=== PATIENT | female | born 1945 | race Caucasian/White ===

== ENCOUNTER → 2017-10-23 | Outpatient (CLI) | payer MEDICARE, OTHER ==
--- NOTE | 2017-10-24 08:58 | MM ---
Reason for exam: screening (asymptomatic). Last mammogram was performed 1 year ago. History: Patient is postmenopausal. Family history of breast cancer in maternal grandmother at age 65, breast cancer in sister at age 50, and breast cancer in mother at age 86. Benign stereotactic core biopsy of the left breast, January 05, 2000. Core biopsy of the left breast. Excisional biopsy of the left breast. Took hormonal contraceptives for 7 years beginning at age 26. Took estrogen for 2 years beginning at age 52. Physical Findings: A clinical breast exam by your physician is recommended on an annual basis and results should be correlated with mammographic findings. MG 3D Screening Mammo W/Cad Bilateral CC and MLO view(s) were taken. Prior study comparison: October 12, 2016, bilateral MG 3d screening mammo w/cad. July 28, 2015, bilateral MG diagnostic mammo w CAD DIANA. There are scattered fibroglandular densities. Benign calcifications bilaterally. There is chronic nodularity bilaterally. No significant changes when compared with prior studies. ASSESSMENT: Benign, BI-RAD 2 RECOMMENDATION: Routine screening mammogram of both breasts in 1 year.
== END | disposition home or self-care (01) ==
LOC: RADMAMWWP 08:58
PROVIDERS: ATTEND Internal Medicine
DX: Z12.31 Encounter for screening mammogram for malignant neoplasm of breast (principal); Z80.3 Family history of malignant neoplasm of breast
CPT/HCPCS: 77063; 77067

== ENCOUNTER → 2018-11-01 | Outpatient (CLI) | payer MEDICARE ==
--- NOTE | 2018-11-03 14:22 | MM ---
Reason for exam: screening (asymptomatic). Last mammogram was performed 1 year ago. History: Patient is postmenopausal. Family history of breast cancer in maternal grandmother at age 65, breast cancer in sister at age 50, and breast cancer in mother at age 86. Benign stereotactic core biopsy of the left breast, January 05, 2000. Core biopsy of the left breast. Excisional biopsy of the left breast. Took hormonal contraceptives for 7 years beginning at age 26. Took estrogen for 2 years beginning at age 52. MG 3D Screening Mammo W/Cad Bilateral CC and MLO view(s) were taken. Prior study comparison: October 23, 2017, bilateral MG 3d screening mammo w/cad. October 12, 2016, bilateral MG 3d screening mammo w/cad. The breast tissue is heterogeneously dense. This may lower the sensitivity of mammography. There are stable benign calcifications. No significant changes when compared with prior studies. ASSESSMENT: Benign, BI-RAD 2 RECOMMENDATION: Routine screening mammogram of both breasts in 1 year.
== END | disposition home or self-care (01) ==
LOC: RADMAMWWP 06:55
PROVIDERS: ATTEND Internal Medicine
DX: Z12.31 Encounter for screening mammogram for malignant neoplasm of breast (principal)
CPT/HCPCS: 77063; 77067

== ENCOUNTER → 2019-10-02 | Outpatient (CLI) | payer MEDICARE ==
--- NOTE | 2019-10-02 11:01 | US ---
EXAMINATION TYPE: US abdomen complete DATE OF EXAM: 10/02/2019 COMPARISON: NONE CLINICAL HISTORY: R10.13 EPIGASTRIC PAIN. Pain EXAM MEASUREMENTS: Liver Length: 18.4 cm Gallbladder Wall: .2 cm CBD: .4 cm Spleen: 9.4 cm Right Kidney: 12.7 x 4.5 x 4.4 cm Left Kidney: 10.2 x 4.5 x 3.6 cm Pancreas: Obscured by bowel gas Liver: Increased attenuation upper limits Gallbladder: No stones seen Evidence for sonographic Denton's sign: No CBD: wnl Spleen: wnl Right Kidney: wnl Left Kidney: small amount of hydronephrosis Upper IVC: wnl Abd Aorta: wnl The visualized liver is heterogeneously hyperechoic. Evaluation for focal masses suboptimal due to t he heterogeneity. The intrahepatic portion of the IVC and visualized abdominal aorta are within noy l limits. There is no evidence of cholelithiasis. Common bile duct is unremarkable. The visualized portions of the pancreas are heterogeneous. Portions are obscured by overlying bowel gas. The spleen is unremarkable. No renal lesions are seen. IMPRESSION: Probable diffuse fatty infiltration of liver. Poor visualization of both kidneys with sug gestion of mild to moderate left-sided pyelocaliectasis. Follow-up CT advised.
== END | disposition home or self-care (01) ==
LOC: RADUSWWP 09:37
PROVIDERS: ATTEND Family Medicine
DX: R10.13 Epigastric pain (principal)
CPT/HCPCS: 76700

== ENCOUNTER → 2019-10-23 | Outpatient (CLI) | payer MEDICARE ==
--- NOTE | 2019-10-23 15:39 | CT ---
EXAMINATION TYPE: CT abdomen pelvis wo con DATE OF EXAM: 10/23/2019 COMPARISON: Ultrasound 10/02/2019 HISTORY: 74-year-old female R93.89, Abn US CT DLP: 1228.6 mGycm. Automated exposure control for dose reduction was used. TECHNIQUE: Contiguous axial scanning of the abdomen and pelvis without IV contrast. Coronal and sagit audrey reconstructions performed. FINDINGS: Heart normal size without pericardial effusion. Lung bases clear without pleural effusion. Small hiatal hernia with some oral contrast seen within the distal esophagus raising possibility of g astroesophageal reflux. Noncontrast appearance of the liver, gallbladder, adrenal glands, right kidney, spleen, and pancreas show no gross adenopathy. Cystlike structures in the region of the left renal sinus measuring up to 4.2 cm. The ureter itself h owever, appears normal caliber. No dilated small bowel, free fluid, or free air. No mesenteric or retroperitoneal lymphadenopathy. Normal appendix. Oral contrast progressed to the distal transverse colon. No significant stool burden . No pericolonic inflammatory change. Bladder not distended. Uterus retroverted. Uterus is very bulky probably with underlying fibroid ford ge, suspect a partially calcified anterior uterine body fibroid measuring up to 4.5 cm. Fundal fibroi d measures 2.7 cm. No abnormal fluid collection in the pelvis or pelvic lymphadenopathy. Bones: Mild degenerative changes of the hips. Multilevel degenerative changes throughout the lumbar s pine. IMPRESSION: 1. Cystlike structure measuring up to 4.2 cm in the left renal sinus region. The ureter itself appea rs normal caliber. Findings suspected to represent prominent parapelvic cysts accounting for the ultr asound appearance. Recommend follow-up CT with contrast (which includes delayed kidney images) to con firm. 2. Small hiatal hernia with some oral contrast located within the distal esophagus raising the possi bility of gastroesophageal reflux. 3. Bulky retroverted uterus. Suspect underlying fibroid change measuring up to 4.5 cm. Pelvic ultras ound can exclude any abnormal endometrial thickening.
== END | disposition home or self-care (01) ==
LOC: RADCTMAIN 13:32
PROVIDERS: ATTEND Family Medicine
DX: K44.9 Diaphragmatic hernia without obstruction or gangrene (principal); N85.4 Malposition of uterus; R93.41 Abnormal radiologic findings on diagnostic imaging of renal pelvis, ureter, or bladder
CPT/HCPCS: 74176

== ENCOUNTER → 2019-11-05 | Outpatient (CLI) | payer MEDICARE ==
[2019-11-05 12:32] LABS: African American GFR (CKD) >90 (>60 ml/min/1.73 sqM); Blood Urea Nitrogen 16 mg/dL (7-17); Non-African American GFR(CKD) 90 (>60 ml/min/1.73 sqM)
--- NOTE | 2019-11-05 13:18 | CT ---
EXAMINATION TYPE: CT abdomen w con DATE OF EXAM: 11/05/2019 COMPARISON: 10/23/2019 HISTORY: Mid back pain and Abnormal prior CT CT DLP: 1709 mGycm Automated exposure control for dose reduction was used. TECHNIQUE: Helical acquisition of images was performed from the lung bases through the top of iliac crest to include entire abdomen. CONTRAST: Performed with Oral Contrast and with IV Contrast, patient injected with 100 mL of Isovue 300. FINDINGS: LUNG BASES: No significant abnormality is appreciated. LIVER/GB: No significant abnormality is appreciated. PANCREAS: No significant abnormality is seen. SPLEEN: No significant abnormality is seen. ADRENALS: Stable 1.4 cm right adrenal nodule is indeterminate. KIDNEYS: Prominent extrarenal pelvis noted on the left. No evident gaseous renal mass or hydronephros is.. BOWEL: No significant abnormality is seen. LYMPH NODES: No significant abnormality is seen. OSSEOUS STRUCTURES: Mild degenerative changes of the hips. Multilevel degenerative changes throughou t the lumbar spine. OTHER: Visualized aorta of normal caliber.. Moderate-sized hiatal hernia noted. IMPRESSION: 1. Findings involving the left kidney are compatible with extrarenal pelvis with no evidence of renal cyst or hydronephrosis. 2. Hiatal hernia. 3. Indeterminate 1.4 cm right adrenal nodule. Most likely etiology is an incidental adrenal adenoma. Other etiologies not excluded
== END | disposition home or self-care (01) ==
LOC: RADCTMAIN 11:44
PROVIDERS: ATTEND Family Medicine
DX: K44.9 Diaphragmatic hernia without obstruction or gangrene (principal); Z13.9 Encounter for screening, unspecified
CPT/HCPCS: 82565; 84520; 74160; 36415; Q9967

== ENCOUNTER 2019-12-25 06:57 | Day surgery (SDC) | payer MEDICARE ==
[2019-12-20 13:54] VITALS: BMI 41.6
[~2019-12-25 06:57] MED LIST: LACTATED RINGERS 1,000 ML IV SCH; LIDOCAINE 1% (10MG/ML) FOR IV START INTRADERMA PRN
[2019-12-25 07:34] LABS: Glucose,Whole Blood 121 mg/dL (75-99)
[2019-12-25] MEDS ORDERED: PROPOFOL 10 MG/ML 20 ML VIAL IV ONE (07:38)
[2019-12-25] MEDS ORDERED: LIDOCAINE 1% INJ 10MG/ML (20 ML MDV) ONE (07:38)
--- NOTE | 2019-12-25 08:02 | P.PCN ---
Date of Procedure: 12/25/19 Procedure(s) Performed: BRIEF HISTORY: Patient is a 74-year-old pleasant white female scheduled for a elective colonoscopy as a part of the lesion of prior history of colon polyps and family history of colon cancer. Her mother and sister was diagnosed with colon cancer in his 60s. PROCEDURE PERFORMED: Colonoscopy. PREOPERATIVE DIAGNOSIS: History of colon polyps and family history of colon cancer. IV sedation per Anesthesia. PROCEDURE: After informed consent was obtained, the patient, was brought into the endoscopy unit. IV sedation was administered by Anesthesia under continuous monitoring. Digital rectal examination was normal. Initially the Olympus CF-160 flexible video colonoscope was then inserted in the rectum, gradually advanced into the cecum without any difficulty. Careful examination was performed as the scope was gradually being withdrawn. Ileocecal valve and the appendiceal orifice were visualized and appeared normal. Prep was excellent. Mucosa of the cecum, ascending colon, transverse colon, descending colon, sigmoid colon, and rectum appeared normal. Retroflexion was performed in the rectum and no lesions were seen. The patient tolerated the procedure well. IMPRESSION: Normal-appearing colon from rectum to cecum with no evidence of colorectal neoplasia . RECOMMENDATIONS: Findings of this examination were discussed with the patient is well as her family. She was advised to have a repeat screening colonoscopy every 5 years because of strong family history of colon cancer..
[2019-12-25 08:07] VITALS: RESP 16
[2019-12-25 08:18] VITALS: BP 144/70; PULSE 66
== END 2019-12-25 08:54 | disposition home or self-care (01) ==
LOC: ORWHC2ENDO 06:57
PROVIDERS: ATTEND Internal Medicine Gastroenterology
DX: Z12.11 Encounter for screening for malignant neoplasm of colon (principal); Z86.010 Personal history of colon polyps; Z80.0 Family history of malignant neoplasm of digestive organs; I10 Essential (primary) hypertension; E78.5 Hyperlipidemia, unspecified; E11.9 Type 2 diabetes mellitus without complications; K21.9 Gastro-esophageal reflux disease without esophagitis; M10.9 Gout, unspecified; Z91.048 Other nonmedicinal substance allergy status; Z79.899 Other long term (current) drug therapy
CPT/HCPCS: J2001; J2704; G0121

== ENCOUNTER → 2019-12-30 | Outpatient (CLI) | payer MEDICARE | END | disposition home or self-care (01) | LOC: RADMAMWWP 08:10 | PROVIDERS: ATTEND Family Medicine | DX: Z12.31 Encounter for screening mammogram for malignant neoplasm of breast (principal) | CPT/HCPCS: 77063; 77067 ==

== ENCOUNTER → 2020-07-17 | Outpatient (CLI) | payer MEDICARE ==
--- NOTE | 2020-07-17 14:11 | BD ---
EXAMINATION TYPE: Axial Bone Density DATE OF EXAM: 07/17/2020 COMPARISON: NONE CLINICAL HISTORY: Height: 67 Weight: 273.8 FRAX RISK QUESTIONS: Alcohol (3 or more units per day): no Family History (Parent hip fracture): no Glucocorticoids (More than 3mos): no (Ex: prednisone, prednisolone, methylprednisolone, dexamethasone, and hydrocortisone). History of Fracture in Adulthood: no Secondary Osteoporosis: 1. Type 1 Diabetes: no 2. Hyperthyroidism: no 3. Menopause before 45: no 4. Malnutrition: no 5. Chronic liver disease: no Rheumatoid Arthritis: no Current Tobacco Use: no RISK FACTORS HISTORY OF: Family History of Osteoporosis: yes Active: no Diet low in dairy products/other sources of calcium: yes Postmenopausal woman: age 52 Lost more than 2 inches in height since high school: no MEDICATIONS: scanned list into pacs Additional History: EXAM MEASUREMENTS: Bone mineral densitometry was performed using the [employer] System. Bone mineral density as measured about the Lumbar spine is: ----- L1-L4(G/cm2): 1.337 T Score Values are as follows: ----- L2: 1.2 ----- L3: 3.1 ----- L4: 1.0 ----- L1-L4: 1.3 Bone mineral density has: increased 11.9 % since study of: 12.15.2010 Bone mineral density about the R hip (g/cm2): 0.868 Bone mineral density about the L hip (g/cm2): 0.865 T Score values are as follows: -----R Neck: -1.2 -----L Neck: -1.2 -----R Total: -0.9 -----L Total: -0.6 Bone mineral density has: decreased -3.8 % since study of: 12.15.2010 IMPRESSION: No evidence for osteoporosis or osteopenia. NOTE: T-SCORE=SD OF THE YOUNG ADULT MEAN.
== END | disposition home or self-care (01) ==
LOC: RADBDWWP 09:51
PROVIDERS: ATTEND Family Medicine
DX: M81.0 Age-related osteoporosis without current pathological fracture (principal)
CPT/HCPCS: 77080

== ENCOUNTER → 2020-07-17 | Outpatient (CLI) | payer MEDICARE ==
--- NOTE | 2020-07-17 10:48 | XR ---
EXAMINATION TYPE: XR chest 2V DATE OF EXAM: 07/17/2020 COMPARISON: Chest x-ray March 15, 2013. HISTORY: Dyspnea. TECHNIQUE: Frontal and lateral views of the chest are obtained. FINDINGS: There is no focal air space opacity, pleural effusion, or pneumothorax seen. The cardiac silhouette size is within normal limits with atherosclerotic change aortic knob. Moderate multilevel spurring in the lower thoracic spine. IMPRESSION: No acute cardiopulmonary process. No significant change from prior.
== END | disposition home or self-care (01) ==
LOC: RADXRMAIN 10:15
PROVIDERS: ATTEND Family Medicine
DX: R06.09 Other forms of dyspnea (principal)
CPT/HCPCS: 71046

== ENCOUNTER → 2021-04-08 | Outpatient (CLI) | payer MEDICARE ==
--- NOTE | 2021-04-09 11:17 | MM ---
Reason for exam: screening (asymptomatic). Last mammogram was performed 1 year and 3 months ago. History: Patient is postmenopausal. Family history of breast cancer in maternal grandmother at age 65, breast cancer in sister at age 50, and breast cancer in mother at age 86. Benign stereotactic core biopsy of the left breast, January 05, 2000. Core biopsy of the left breast. Excisional biopsy of the left breast. Took hormonal contraceptives for 7 years beginning at age 26. Took estrogen for 2 years beginning at age 52. Physical Findings: A clinical breast exam by your physician is recommended on an annual basis and results should be correlated with mammographic findings. MG 3D Screening Mammo W/Cad Bilateral CC and MLO view(s) were taken. Prior study comparison: December 30, 2019, bilateral MG 3d screening mammo w/cad. November 01, 2018, bilateral MG 3d screening mammo w/cad. There are scattered fibroglandular densities. Left post operative change and biopsy clip. ASSESSMENT: Benign, BI-RAD 2 RECOMMENDATION: Routine screening mammogram of both breasts in 1 year.
== END | disposition home or self-care (01) ==
LOC: RADMAMWWP 09:28
PROVIDERS: ATTEND Family Medicine
DX: Z12.31 Encounter for screening mammogram for malignant neoplasm of breast (principal); Z78.0 Asymptomatic menopausal state; Z80.3 Family history of malignant neoplasm of breast
CPT/HCPCS: 77063; 77067

== ENCOUNTER → 2021-09-01 | Outpatient (CLI) | payer MEDICARE ==
--- NOTE | 2021-09-01 13:53 | XR ---
EXAMINATION TYPE: XR chest 2V DATE OF EXAM: 09/01/2021 COMPARISON: Chest x-ray July 17, 2020 HISTORY: Cough for 2 weeks. TECHNIQUE: Frontal and lateral views of the chest are obtained. FINDINGS: There is no suspicious peripheral focal air space opacity, pleural effusion, or pneumothor ax seen. The cardiac silhouette size is stable and within normal limits. The osseous structures ar e demineralized. IMPRESSION: No acute pulmonary process. No significant change from prior.
== END | disposition home or self-care (01) ==
LOC: RADXRMAIN 13:33
PROVIDERS: ATTEND Family Medicine
DX: R05.9 Cough, unspecified (principal)
CPT/HCPCS: 71046

== ENCOUNTER → 2022-05-17 | Outpatient (CLI) | payer MEDICARE ==
[~2022-05-17] MED LIST changes: +BEBTELOVIMAB (EUA) 175 MG/2 ML VIAL IV NR; -LACTATED RINGERS 1,000 ML IV SCH; -LIDOCAINE 1% (10MG/ML) FOR IV START INTRADERMA PRN; +SODIUM CHLORIDE 0.9% 500 ML 500 ML in EMPTY BAG 1 BAG IV PRN
[2022-05-17 12:53] VITALS: TEMP 97.5
[2022-05-17 13:48] VITALS: BP 111/71; PULSE 55; RESP 16
== END ==
LOC: PROCWHC3 12:17
PROVIDERS: ATTEND Physician Assistant Medical
DX: U07.1 COVID-19 (principal); E66.9 Obesity, unspecified; Z91.048 Other nonmedicinal substance allergy status; Z91.09 Other allergy status, other than to drugs and biological substances; Z68.34 Body mass index [BMI] 34.0-34.9, adult
CPT/HCPCS: Q0222; M0222

== ENCOUNTER → 2023-01-16 | Outpatient (CLI) | payer MEDICARE | END | disposition home or self-care (01) | LOC: LABWHC1 08:01 | PROVIDERS: ATTEND Family Medicine | DX: D35.00 Benign neoplasm of unspecified adrenal gland (principal) | CPT/HCPCS: 36415; 82024 ==

== ENCOUNTER → 2023-01-30 | Outpatient (CLI) | payer MEDICARE | END | disposition home or self-care (01) | LOC: LABWHC1 07:38 | PROVIDERS: ATTEND Family Medicine | DX: D35.00 Benign neoplasm of unspecified adrenal gland (principal) | CPT/HCPCS: 36415 ==

== ENCOUNTER → 2023-06-08 | Outpatient (CLI) | payer MEDICARE ==
--- NOTE | 2023-06-09 10:56 | MM ---
Reason for Exam: Screening (asymptomatic). Last screening mammogram was performed 12 month(s) ago. Patient History: Menarche at age 15. First Full-Term at age 29. Postmenopausal. Estrogen for 2 years from age 52 until age 54. Hormonal Contraceptives for 7 years from age 26 until age 33. Core Biopsy on the Left side. Excisional Biopsy on the Left side. 01/05/2000, Benign Stereotactic Core Biopsy on the left side. Maternal grandmother had breast cancer, age 65. Sister had breast cancer, age 50. Mother had breast cancer, age 86. Risk Values: Pamela 5 year model risk: 9.0%. NCI Lifetime model risk: 18.4%. Prior Study Comparison: 12/30/2019 Bilateral Screening Mammogram, [facility]. 04/08/2021 Bilateral Screening Mammogram, [facility]. 06/03/2022 Bilateral MG 3D screening mammo w/cad, [facility]. Tissue Density: There are scattered fibroglandular densities. Findings: Analyzed By CAD. Left breast biopsy clip in an area of architectural distortion. There is no suspicious group of microcalcifications or new suspicious mass in either breast. Overall Assessment: Negative, BI-RAD 1 Management: Screening Mammogram of both breasts in [address] [facility] will attempt to contact patient to return for supplemental views and ultrasound if indicated. Patient should continue monthly self-breast exams. A clinical breast exam by your physician is recommended on an annual basis. This exam should not preclude additional follow-up of suspicious palpable abnormalities. Note on Pamela scores and lifetime risk: 1. A Pamela score greater than 3% is considered moderate risk. If this is the case, consider specialist referral to assess eligibility for a risk reducing agent. 2. If overall lifetime risk for the development of breast cancer is 20% or higher, the patient may qualify for future screening with alternating mammogram and breast MRI. Electronically signed and approved by: Lupillo Simpson DO
== END | disposition home or self-care (01) ==
LOC: RADMAMWWP 09:03
PROVIDERS: ATTEND Family Medicine
DX: Z12.31 Encounter for screening mammogram for malignant neoplasm of breast (principal); Z78.0 Asymptomatic menopausal state; Z80.3 Family history of malignant neoplasm of breast
CPT/HCPCS: 77063; 77067

== ENCOUNTER → 2024-03-14 | Outpatient (CLI) | payer MEDICARE ==
--- NOTE | 2024-03-14 23:10 | XR ---
EXAMINATION TYPE: XR lumbar spine 2 or 3V DATE OF EXAM: 03/14/2024 COMPARISON: None HISTORY: Low back pain TECHNIQUE: Three-view lumbar spine FINDINGS: There are 5 lumbar-type vertebral bodies. Pedicles are intact. Spondylosis is present. Ther e is loss of disc height to the lumbar spine. Vertebral body heights are preserved. Retrolisthesis of L3 posterior 4 is noted. IMPRESSION: 1. Grade 1 retrolisthesis of L3 posteriorly on L4. 2. Multilevel degenerative disc changes
== END | disposition home or self-care (01) ==
LOC: RADXRMAIN 11:35
PROVIDERS: ATTEND Family Medicine
DX: M43.16 Spondylolisthesis, lumbar region (principal); M51.36 Other intervertebral disc degeneration, lumbar region
CPT/HCPCS: 72100

== ENCOUNTER → 2024-07-02 | Outpatient (CLI) | payer MEDICARE ==
--- NOTE | 2024-07-04 09:24 | MM ---
Reason for Exam: Screening (asymptomatic). Last mammogram was performed 1 year(s) and 1 month(s) ago. Patient History: Menarche at age 15. First Full-Term at age 29. Postmenopausal. Estrogen for 2 years from age 52 until age 54. Hormonal Contraceptives for 7 years from age 26 until age 33. Core Biopsy on the Left side. Excisional Biopsy on the Left side. 01/05/2000, Benign Stereotactic Core Biopsy on the left side. Maternal grandmother had breast cancer, age 65. Sister had breast cancer, age 50. Mother had breast cancer, age 86. Risk Values: Pamela 5 year model risk: 9.0%. NCI Lifetime model risk: 17.4%. Prior Study Comparison: 04/08/2021 Bilateral Screening Mammogram, [facility]. 06/03/2022 Bilateral MG 3D screening mammo w/cad, [facility]. 06/08/2023 Bilateral MG 3D screening mammo w/cad, [facility]. Tissue Density: There are scattered areas of fibroglandular density. Findings: Analyzed By CAD. Right breast: There is no suspicious group of microcalcifications or new suspicious mass. Left breast: There is no suspicious group of microcalcifications or new suspicious mass. Overall Assessment: Negative, BI-RAD 1 Management: Screening Mammogram of both breasts in [address] [facility] will attempt to contact patient to return for supplemental views and ultrasound if indicated. Patient should continue monthly self-breast exams. A clinical breast exam by your physician is recommended on an annual basis. This exam should not preclude additional follow-up of suspicious palpable abnormalities. Note on Pamela scores and lifetime risk: 1. A Pamela score greater than 3% is considered moderate risk. If this is the case, consider specialist referral to assess eligibility for a risk reducing agent. 2. If overall lifetime risk for the development of breast cancer is 20% or higher, the patient may qualify for future screening with alternating mammogram and breast MRI. [facility], , 07/04/2024 9:21 AM. Electronically signed and approved by: Lupillo Simpson DO
== END | disposition home or self-care (01) ==
LOC: RADMAMWWP 09:39
PROVIDERS: ATTEND Family Medicine
DX: Z12.31 Encounter for screening mammogram for malignant neoplasm of breast
CPT/HCPCS: 77063; 77067

== ENCOUNTER 2025-01-07 06:40 | Day surgery (SDC) | payer MEDICARE ==
[2025-01-07 07:15] VITALS: RESP 16; TEMP 97.5
[2025-01-07] MEDS: LACTATED RINGERS 1,000 ML IV SCH (07:29)
[2025-01-07] MEDS: IV FLUID CONTINUATION 1,000 ML IV ONE (07:30)
[2025-01-07 07:32] LABS: Glucose,Whole Blood 94 mg/dL (70-110)
[2025-01-07] MEDS ORDERED: PROPOFOL 10 MG/ML 20 ML VIAL IV ONE (07:47)
--- NOTE | 2025-01-07 08:07 | P.PCN ---
Date of Procedure: 01/07/25 Procedure(s) Performed: BRIEF HISTORY: Patient is a 79-year-old pleasant white female scheduled for an elective colonoscopy as a part of screening for colon cancer and family history of colon cancer. Her mother was diagnosed with colon cancer at age 60. PROCEDURE PERFORMED: Colonoscopy with biopsy. PREOPERATIVE DIAGNOSIS: Screening for colon cancer and family history of colon cancer. IV sedation per Anesthesia. PROCEDURE: After informed consent was obtained, the patient, was brought into the endoscopy unit. IV sedation was administered by Anesthesia under continuous monitoring. Digital rectal examination was normal. Initially the Olympus CF-160 flexible video colonoscope was then inserted in the rectum, gradually advanced into the cecum without any difficulty. Careful examination was performed as the scope was gradually being withdrawn. Ileocecal valve and the appendiceal orifice were visualized and appeared normal. Prep was excellent. Mucosa of the cecum, ascending colon, transverse colon, descending colon, sigmoid colon, and rectum appeared normal. In the rectum there was a 5 mm polyp that was removed by cold biopsy. Retroflexion was performed in the rectum and no lesions were seen. The patient tolerated the procedure well. IMPRESSION: 3 mm distal rectal polyp status post cold biopsy Rest of the colon appeared normal RECOMMENDATIONS: Findings of this examination were discussed with the patient as well as her family. Follow-up with biopsy results. She was advised to have repeat screening colonoscopy in 5 years because of the family history of colon polyps..
[2025-01-07 08:23] VITALS: BP 115/70; PULSE 64
== END 2025-01-07 08:49 ==
LOC: ORWHC2ENDO 06:40
PROVIDERS: ATTEND Internal Medicine Gastroenterology
DX: Z12.11 Encounter for screening for malignant neoplasm of colon (principal); K62.1 Rectal polyp; I10 Essential (primary) hypertension; E11.9 Type 2 diabetes mellitus without complications; K21.9 Gastro-esophageal reflux disease without esophagitis; M19.90 Unspecified osteoarthritis, unspecified site; Z86.0100 Personal history of colon polyps, unspecified; Z80.0 Family history of malignant neoplasm of digestive organs; Z79.899 Other long term (current) drug therapy
CPT/HCPCS: 88305; 45380; J2704